=== PATIENT | female | born 1975 | race Caucasian/White ===

== ENCOUNTER 2020-07-31 15:11 | Outpatient (REF) | payer BC, SELFPAY ==
--- NOTE | 2020-07-31 15:15 | MM_ITS ---
EXAMINATION: MM SCREENING DIGITAL BREAST TOMOSYNTHESIS, BILATERAL CLINICAL INFORMATION: Screening. Asymptomatic. The lifetime risk of breast cancer based on the Tyrer-Cuzick Model is 15%. COMPARISON: Mammography: 12/29/2018, 11/23/2017, 11/10/2016 TECHNIQUE: Digital breast tomosynthesis is performed in both the craniocaudal and mediolateral oblique views along with computer-aided detection (CAD). Synthesized 2D images are generated from the tomosynthesis. FINDINGS: There are scattered areas of fibroglandular density (ACR BI-RADS breast composition Category b). There are no significant masses, abnormal calcifications, or other abnormalities. The axilla and skin contours are unremarkable. No significant changes from prior exams. MM/MM tomosynthesis screening BI IMPRESSION: No mammographic evidence of malignancy. ASSESSMENT: BI-RADS 1: Negative RECOMMENDATION: Routine annual mammography screening. This patient's information was entered into a reminder system with a target due date for their next mammogram.
== END 2020-07-31 15:12 | disposition home or self-care (01) ==
LOC: HO.MAMMO 15:11
PROVIDERS: PCP Internal Medicine; Visit Provider Internal Medicine
DX: Z12.31 Encounter for screening mammogram for malignant neoplasm of breast (principal)
CPT/HCPCS: 77063; 77067

== ENCOUNTER → 2020-11-27 10:57 | Outpatient (BNVA) | payer BC, SELFPAY | PROVIDERS: Visit Provider Advanced Practice Midwife ==

== ENCOUNTER 2021-08-11 11:37 | Outpatient (REF) | payer BC, SELFPAY ==
--- NOTE | ~2021-08-11 | MM_ITS ---
EXAMINATION: MM SCREENING DIGITAL BREAST TOMOSYNTHESIS, BILATERAL CLINICAL INFORMATION: Screening. Asymptomatic. The lifetime risk of breast cancer based on the Tyrer-Cuzick Model is 17%. COMPARISON: Mammography: 07/31/2020, 12/29/2018, 11/23/2017 TECHNIQUE: Digital breast tomosynthesis is performed in both the craniocaudal and mediolateral oblique views along with computer-aided detection (CAD). Synthesized 2D images are generated from the tomosynthesis. Additional left MLO view is provided. FINDINGS: There are scattered areas of fibroglandular density (ACR BI-RADS breast composition Category b). There are no significant masses, abnormal calcifications, or other abnormalities. MM/MM tomosynthesis screening BI IMPRESSION: No mammographic evidence of malignancy. ASSESSMENT: BI-RADS 1: Negative RECOMMENDATION: Routine annual mammography screening. This patient's information was entered into a reminder system with a target due date for their next mammogram.
== END 2021-08-11 11:38 | disposition home or self-care (01) ==
LOC: HO.MAMMO 11:37
PROVIDERS: Visit Provider Internal Medicine
DX: Z12.31 Encounter for screening mammogram for malignant neoplasm of breast (principal)
CPT/HCPCS: 77063; 77067

== ENCOUNTER → 2021-12-18 11:01 | Outpatient (BNVA) | payer BC, SELFPAY | PROVIDERS: PCP Internal Medicine; Visit Provider Advanced Practice Midwife | DX: Z13.89 Encounter for screening for other disorder (principal) ==

== ENCOUNTER 2022-08-19 11:44 | Outpatient (REF) | payer BC, SELFPAY ==
--- NOTE | ~2022-08-19 | MM_ITS ---
EXAMINATION: MM SCREENING DIGITAL BREAST TOMOSYNTHESIS, BILATERAL CLINICAL INFORMATION: Screening. Asymptomatic. The lifetime risk of breast cancer based on the Tyrer-Cuzick Model is 14%. COMPARISON: Mammography: 08/11/2021, 07/31/2020, 12/29/2018 TECHNIQUE: Digital breast tomosynthesis is performed in both the craniocaudal and mediolateral oblique views along with computer-aided detection (CAD). Synthesized 2D images are generated from the tomosynthesis. FINDINGS: There are scattered areas of fibroglandular density (ACR BI-RADS breast composition Category b). There are no significant masses, abnormal calcifications, or other abnormalities. Parenchymal pattern is similar to prior studies. There is no developing density or architectural abnormality. The axilla and skin contours are unremarkable. No significant changes. MM/MM tomosynthesis screening BI IMPRESSION: No mammographic evidence of malignancy. ASSESSMENT: BI-RADS 1: Negative RECOMMENDATION: Routine annual mammography screening. This patient's information was entered into a reminder system with a target due date for their next mammogram.
== END 2022-08-19 11:45 | disposition home or self-care (01) ==
LOC: HO.MAMMO 11:44
PROVIDERS: PCP Internal Medicine; Visit Provider Internal Medicine
DX: Z12.31 Encounter for screening mammogram for malignant neoplasm of breast (principal)
CPT/HCPCS: 77063; 77067

== ENCOUNTER 2023-02-17 09:03 | Outpatient (AMB) | payer BC, SELFPAY ==
--- NOTE | 2023-02-17 09:04 | A.OFFVIS_ITS ---
Intake Vital Signs 02/17/23 09:09 Height 5 ft 10 in Weight 163 lb BMI 23.4 BP 104/66 Intake Visit Reasons: Annual Allergies No Known Allergies Allergy (Mild, Verified 02/17/23 09:10) NOT APPLICABLE Medication List - Last Reconciled 02/17/23 by Tianna Brewer CNM escitalopram oxalate (Lexapro) 10 mg PO DAILY fluticasone propionate 50 mcg/actuation (Flonase Allergy Relief) 1 spray intranasal DAILY multivitamin (Daily Multi-Vitamin tablet) 1 tab PO DAILY sumatriptan succinate (Imitrex) 100 mg PO Q2-4H PRN Is last menstrual period known: Yes Last menstrual period: 01/13/23 (cycles starting to change) HPI Annual HPI Details Patient is here for her obstetrician and gynaecologist annual exam and Pap smear. Visits from past reviewed. She has been healthy since the last time she was seen in 2020 she has no history of abnormal Paps she has 0 worries about STIs and declines any testing she typically has use condoms for control but occasionally she does not she is monogamous and has no worries about STIs and would rather avoid a unintended at this stage. She eats very well she does yoga for exercise and hikes when it is not so hot. She has been noticing some irregularity with her menses she has skipped some cycles for as much as 8-9 months this past year and then they started back up again. Her last 1 was the end of December about a month ago. She has had no further gastrointestinal problems since several years ago when she was hospitalized with a possible ruptured appendix and infection She did have an extended period of upper respiratory infections this year with a sinus infection so prolonged periods of coughing in upper respiratory issues and during that time she started to have some urinary incontinence coughing/stress. It has mostly resolved itself she in general tends to drink a lot of water and she works from home so she does void when she needs to void and she re doubled her efforts with Kegel exercises and it has improved. Discussed options for referrals at some length in terms of exploring Urology consultations if she chose and she could discuss that with her primary or I would be happy to place a physical therapy referral for her as well but she wanted to know what the options were but was not interested in exploring them at this point since things have gotten better with her own efforts. PFSH Medical History Migraines Yeast infection Family History Mother HTN (hypertension) Paternal Aunt Breast cancer Maternal Aunt Cervical cancer, FIGO stage IIIB Father Esophageal cancer Social History Gender identity: Female Female Reproductive History Menstrual Age of Menarche: 11 Date of last menstrual period: 01/13/23 (cycles starting to change) Total pregnancies: 4 Number of Living Children: 3 Ab spontaneous: 1 Date of last pap smear: 07/07/18 (wnl) Physical Exam Vital Signs: Last Vital Signs BP 104/66 02/17/23 09:09 BMI result Body Mass Index 23.4 Const General: healthy appearing, comfortable, no acute distress, well developed and alert Nutritional Appearance: average body habitus Orientation/consciousness: patient oriented x3 Limitations: no limitations HEENT Head: Yes normocephalic Neck Neck: Yes normal visual inspection Chest Chest palpation & inspection: normal inspection of the chest Breast/axilla inspection: normal inspection of the breasts and normal inspection of the axillae Breast/axilla palpation: normal palpation of the breasts and normal palpation of the axillae Resp Effort & Inspection: normal respiratory effort GI Inspection: Yes normal to inspection, No Abdominal wall edema and No distended Palpation (GI): Soft to palpation and nontender Other: External exam completely within normal limits vagina pink and moist cervix multiparous moist small amount clear and white discharge no malodor cervix mobile nontender uterus midposition nontender adnexa nontender not enlarged excellent tone with sustained Kegel. General: Yes bladder normal to palpation External Female Exam: normal external appearance and normal appearance of the urethra Speculum Exam - Vagina: normal appearance of the vagina, normal palpation and normal vaginal discharge Speculum Exam - Cervix: normal appearance of the cervix, normal palpation and nontender Bimanual exam- vagina & uterus: normal bimanual exam, normal palpation, uterine size normal, bladder normal to palpation, consistency normal, normal palpation, uterine mobility normal, uterine shape normal, No Cervical tenderness present, non-tender and no cervical motion tenderness Bimanual Exam- Adnexa, other: normal adnexae, no masses, normal and No adnexal tenderness Neuro General: patient oriented x3 Assessment & Plan Assessment & Plan (1) Cervical cancer screening: Comment: hx neg paps and hpv, last neg jun 2018, next pap 07/16. Code(s): Z12.4 - Encounter for screening for malignant neoplasm of cervix (2) Well woman exam with routine gynecological exam: Code(s): Z01.419 - Encounter for gynecological examination (general) (routine) without abnormal findings (3) Perimenopause: Code(s): N95.1 - Menopausal and female climacteric states Plan Patient is here for her obstetrician and gynaecologist annual exam and Pap smear. Visits from past reviewed. She has been healthy since the last time she was seen in 2020 she has no history of abnormal Paps she has 0 worries about STIs and declines any testing she typically has use condoms for control but occasionally she does not she is monogamous and has no worries about STIs and would rather avoid a unintended at this stage. She eats very well she does yoga for exercise and hikes when it is not so hot. She has been noticing some irregularity with her menses she has skipped some cycles for as much as 8-9 months this past year and then they started back up again. Her last 1 was the end of December about a month ago. She has had no further gastrointestinal problems since several years ago when she was hospitalized with a possible ruptured appendix and infection She did have an extended period of upper respiratory infections this year with a sinus infection so prolonged periods of coughing in upper respiratory issues and during that time she started to have some urinary incontinence coughing/stress. It has mostly resolved itself she in general tends to drink a lot of water and she works from home so she does void when she needs to void and she re doubled her efforts with Kegel exercises and it has improved. Discussed options for referrals at some length in terms of exploring Urology consultations if she chose and she could discuss that with her primary or I would be happy to place a physical therapy referral for her as well but she wanted to know what the options were but was not interested in exploring them at this point since things have gotten better with her own efforts. Pap smear was done she declined cultures. She is up-to-date on her mammograms having just had 1 in the spring. She had a colonoscopy after the hospitalization and is up-to-date with that -----Discussed in this visit the following: healthy balanced diet, regular and consistent exercise, getting recommended health screens, doing the best she can for her particular health concerns, kegel exercises, pap smear screening and followup recommendations, mammography screening and SBE, normal changes in cycles in her life stage--- . I also reviewed what to expect in terms of minerva menopausal changes with thinning of skin and vaginal dryness and the importance of weight-bearing exercise and good nutrition which she has. Orders: Orders Pap Smear Today Z01.419 - Encounter for gynecological examination (general) (routine) without abnormal findings Coding Level of Care Code Est Pt Prev Care 40-64y(57092) Diagnoses Cervical cancer screening Z12.4 Well woman exam with routine gynecological exam Z01.419 Perimenopause N95.1
[2023-02-17 09:09] VITALS: BP 104/66; BMI 23.4
== END 2023-02-17 09:51 | disposition home or self-care (01) ==
LOC: HO.HWS 09:03
PROVIDERS: PCP Internal Medicine; Visit Provider Advanced Practice Midwife
DX: Z01.419 Encounter for gynecological examination (general) (routine) without abnormal findings (principal); N95.1 Menopausal and female climacteric states
CPT/HCPCS: 99396

== ENCOUNTER 2023-02-17 09:03 | Outpatient (REF) | payer BC, SELFPAY ==
[2023-02-24 22:18] LABS: HPV mRNA E6/E7 rflx Not Detected (Not Detected)
== END 2023-02-17 09:04 | disposition home or self-care (01) ==
LOC: HO.LNP 09:03
PROVIDERS: PCP Internal Medicine; Visit Provider Advanced Practice Midwife
DX: Z01.419 Encounter for gynecological examination (general) (routine) without abnormal findings (principal); Z11.51 Encounter for screening for human papillomavirus (HPV); N95.1 Menopausal and female climacteric states
CPT/HCPCS: 87624; 88142

== ENCOUNTER 2023-02-17 09:34 | Outpatient (REF) | payer BC, SELFPAY ==
[2023-02-17 10:09] LABS: MANUAL DIFF FLAG NO
[2023-02-17 11:00] LABS: Basophils Absolute Auto 0.1 X10*3/uL (0.0-0.2); Basophils Percent Auto 0.8 % (0-2); Eosinophils Absolute Auto 0.1 X10*3/uL (0.0-0.4); Eosinophils Percent Auto 2.1 % (0-4); Hematocrit 40.2 % (37.0-47.0); Hemoglobin 13.2 g/dl (12.0-16.0); Imm Gran Abs Auto 0.01 X10*3/uL (0.00-0.03); Imm Gran Pct Auto 0.2 % (0.0-0.4); Lymphocytes Percent Auto 30.5 % (20-40); Mean Corpuscular HGB Conc 32.8 g/dl (31.0-35.0); Mean Corpuscular Hemoglobin 28.1 pg (27.0-33.0); Mean Corpuscular Volume 85.5 fL (80.0-98.0); Mean Platelet Volume 10.8 fL (9.4-12.3); Monocytes Absolute Auto 0.5 X10*3/uL (0.1-1.2); Neutrophils Absolute Auto 3.9 x10*3/uL (2.0-8.3); Neutrophils Percent Auto 58.4 % (45-73); Platelet Count 220 X10*3/uL (160-400); Red Cell Distribution Width 12.8 % (11.0-16.0); White Blood Count 6.7 X10*3/uL (4.8-10.8)
[2023-02-17 11:37] LABS: Alanine Aminotransferase 14 U/L (0-31); Albumin Level 4.3 g/dL (3.5-5.0); Alkaline Phosphatase 58 U/L (39-117); Anion Gap 14 (12-20); Aspartate Amino Transferase 15 U/L (5-31); Bilirubin Total 0.6 mg/dL (0.0-1.0); Blood Urea Nitrogen 9 mg/dL (9-16); Calcium 9.8 mg/dL (8.4-10.2); Carbon Dioxide 24 mmol/L (22-29); Chloride 103 mmol/L (96-108); Cholesterol 204 mg/dL; Estimated Glomerular Filt Rate > 60; Glucose Random 94 mg/dL (60-115); HDL Cholesterol 73 mg/dL; LDL Cholesterol Calculated 118 mg/dl; Potassium 4.2 mmol/L (3.3-5.1); Sodium 137 mmol/L (135-145); Total Protein 7.6 g/dL (6.5-8.0); Triglycerides 65 mg/dL
[2023-02-17 11:55] LABS: Thyroid Stimulating Hormone 0.92 uIU/mL (0.32-4.0)
== END 2023-02-17 09:35 | disposition home or self-care (01) ==
LOC: HO.LAB 09:34
PROVIDERS: PCP Internal Medicine; Visit Provider Internal Medicine
DX: G43.909 Migraine, unspecified, not intractable, without status migrainosus (principal); E78.00 Pure hypercholesterolemia, unspecified; F41.9 Anxiety disorder, unspecified
CPT/HCPCS: 36415; 80053; 80061; 84443; 85025

== ENCOUNTER 2023-06-13 12:55 | Outpatient (AMB) | payer BC, SELFPAY ==
[2023-06-13 13:08] VITALS: BP 120/80; PULSE 82; TEMP 36.7; O2SAT 97; BMI 24.4
--- NOTE | 2023-06-13 13:08 | MHC.OFFWIV ---
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) Intake Note: pt is here for c/o cough, congestion Patient Tobacco Use Status: Never used Tobacco Allergies No Known Allergies Allergy (Mild, Verified 06/13/23 13:53) NOT APPLICABLE Medication List - Last Reconciled 06/13/23 by Nino Roberts MD escitalopram oxalate (Lexapro) 10 mg PO DAILY fluticasone propionate 50 mcg/actuation (Flonase Allergy Relief) 1 spray intranasal DAILY multivitamin (Daily Multi-Vitamin tablet) 1 tab PO DAILY sumatriptan succinate (Imitrex) 100 mg PO Q2-4H PRN Do you need a note to return to daycare/school/sports/work: Yes HPI ADMISSION DISCHARGE RN/cough/congestion (lobby masked) HPI Details Patient presents for a sick visit. Reporting symptoms of sinus congestion, sore throat and difficulty swallowing. Low-grade fever. No family member is sick. No recent travel. Patient reports symptoms of malaise and fatigue. [facility] Medical History Migraines Yeast infection Family History Mother HTN (hypertension) Paternal Aunt Breast cancer Maternal Aunt Cervical cancer, FIGO stage IIIB Father Esophageal cancer Social History Patient Tobacco Use Status: Never used Tobacco Gender identity: Female Female Reproductive History Menstrual Age of Menarche: 11 Physical Exam Vital Signs: Last Vital Signs Temp 98.1 F 06/13/23 13:08 Pulse 82 06/13/23 13:08 BP 120/80 06/13/23 13:08 Pulse Ox 97 06/13/23 13:08 Oxygen Delivery Method Room Air 06/13/23 13:08 BMI result Body Mass Index 24.4 Const General: cooperative and healthy appearing Nutritional Appearance: well nourished Orientation/consciousness: patient oriented x3 Limitations: no limitations HEENT Head: Yes normal to inspection Eyes General: appearance normal, both eyes and all related structures Neck Neck: Yes normal visual inspection Chest Chest palpation & inspection: normal palpation of entire chest wall Resp Effort & Inspection: normal respiratory effort Neuro General: patient oriented x3 Assessment & Plan Assessment & Plan (1) Upper respiratory tract infection: Code(s): J06.9 - Acute upper respiratory infection, unspecified Plan Antibiotics ordered. Increase fluid intake. Tylenol for aches and pains. If symptoms worsen, follow-up here for a recheck. Coding Level of Care Code Est Pt Level 3 (04827) Diagnoses Upper respiratory tract infection J06.9
== END 2023-06-13 14:00 | disposition home or self-care (01) ==
PROVIDERS: PCP Internal Medicine; Visit Provider Internal Medicine
DX: J06.9 Acute upper respiratory infection, unspecified (principal)
CPT/HCPCS: 99213

== ENCOUNTER 2023-08-26 13:28 | Outpatient (REF) | payer BC, SELFPAY | END 2023-08-26 13:29 | disposition home or self-care (01) | LOC: HO.MAMMO 13:28 | PROVIDERS: PCP Internal Medicine; Visit Provider Internal Medicine | DX: Z12.31 Encounter for screening mammogram for malignant neoplasm of breast (principal) | CPT/HCPCS: 77063; 77067 ==

== ENCOUNTER → 2023-08-26 13:30 | Outpatient (BNV) | payer BC, SELFPAY | PROVIDERS: PCP Internal Medicine; Visit Provider Radiology Diagnostic Radiology | DX: Z12.31 Encounter for screening mammogram for malignant neoplasm of breast (principal) | CPT/HCPCS: 77063; 77067 ==

== ENCOUNTER 2024-08-14 13:23 | Outpatient (AMB) | payer BC, SELFPAY ==
--- NOTE | 2024-08-14 13:41 | MHC.OFFVIS ---
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 Cyber Security Specialist Required: No Cyber Security Specialist Services: Cyber Security Specialist Present Information Interpreted: clinical only Stonemason: Stonemason Present Allergies No Known Allergies Allergy (Mild, Verified 08/14/24 13:43) NOT APPLICABLE Medication List - Last Reconciled 08/14/24 by Tianna Brewer CNM escitalopram oxalate (Lexapro) 10 mg PO DAILY fluticasone propionate 50 mcg/actuation (Flonase Allergy Relief) 1 spray intranasal DAILY multivitamin (Daily Multi-Vitamin tablet) 1 tab PO DAILY sumatriptan succinate (Imitrex) 100 mg PO Q2-4H PRN Is last menstrual period known: No Post menopausal: Yes HPI HPI 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 Previous 1 before that was 6 months prior. 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 She has not been exercising as much as she would like in the winter but she does do yoga and stretch and pickleball she hikes more in the summer and spring and fall. Her only main concern is something she talked about in the past she has been noticing that she is having more of an issue with incontinence of urine. She needs to wear something that provides more protection then just a pad. She does Kegel's every day and is very committed to that. She thinks she is in decent shape otherwise. It is getting so that sometimes when she coughs or sneezes or laughs there will be leakage but sometimes it is happening regardless.. She has no worries about STIs in his not due for Pap. [facility] Medical History Yeast infection Migraines Family History Mother HTN (hypertension) Paternal Aunt Breast cancer Maternal Aunt Cervical cancer, FIGO stage IIIB Father Esophageal cancer Social History Patient Tobacco Use Status: Never used Tobacco Gender identity: Female Female Reproductive History Menstrual Age of Menarche: 11 Duration of menses: 3-5 days control method: none Total pregnancies: 4 Full term: 3 Date of last pap smear: 02/13/23 (negative,2018 WNL) History of abnormal pap smear: No Date of Mammogram: 08/26/23 (negative) Physical Exam Vital Signs: Last Vital Signs BP 120/80 08/14/24 13:43 BMI result Body Mass Index 23.4 Const General: healthy appearing, comfortable, no acute distress, well developed and alert Nutritional Appearance: average body habitus Orientation/consciousness: patient oriented x3 Limitations: no limitations HEENT Head: Yes normocephalic Neck Neck: Yes normal visual inspection Chest Chest palpation & inspection: normal inspection of the chest Breast/axilla inspection: normal inspection of the breasts and normal inspection of the axillae Breast/axilla palpation: normal palpation of the breasts and normal palpation of the axillae Resp Effort & Inspection: normal respiratory effort GI Inspection: Yes normal to inspection, No Abdominal wall edema and No distended Palpation (GI): Soft to palpation and nontender Other: Justine menopausal atrophic changes noted. Vagina pink cervix multiparous pink with fairly normal appearing discharge cervix long close thick mobile nontender uterus midposition mobile nontender bladder not full concurrent with patient's perception. Good tone with Kegel. Not due for Pap and patient had no concerned about STIs. General: Yes bladder normal to palpation External Female Exam: normal external appearance and normal appearance of the urethra Speculum Exam - Vagina: normal appearance of the vagina, normal palpation and normal vaginal discharge Speculum Exam - Cervix: normal appearance of the cervix, normal palpation and nontender Bimanual exam- vagina & uterus: normal bimanual exam, normal palpation, uterine size normal, bladder normal to palpation, consistency normal, normal palpation, uterine mobility normal, uterine shape normal, No Cervical tenderness present, non-tender and no cervical motion tenderness Bimanual Exam- Adnexa, other: normal adnexae, no masses, normal and No adnexal tenderness Neuro General: patient oriented x3 Results Reviewed Results Reviewed: Name: Ale Samuel Age/Sex: 48/F Attending: Tianna Brewer CNM : 1975 Submitted by: Tianna Brewer CNM Copies to: Inocencio Gagnon MD MR #: [id number] Status: DEP REF Collected: 02/17/23 Location: [facility] Received: 02/22/23 Interpretation General Category: Negative for intraepithelial lesion/malignancy. Adequacy: Endocervical component present. Interpretation: Inflammation with associated cellular changes. HPV mRNA E6/E7: Not Detected This assay detects E6/E7 viral messenger RNA (mRNA) from 14 high-risk HPV types (16, 18, 31, 33, 35, 39, 45, 51, 52, 56, 58, 59, 66, 68) HPV testing performed by [employer], [place], [place]. See reference laboratory portion of the EMR for entire report. Clinical Information LMP: 01/13/23 Previous PAP test: 07/07/18, WNL Material Received ThinPrep-Cervical Copies To Inocencio Gagnon MD [address] [place] [address]. [place] [address] Tianna Brewer [address] [place] [address] Electronically Signed By: Kenny Hathaway MD 03/03/23 9895 The Pap Test is a screening procedure with the inherent possibility of both false negative and false positive results. Results should be interpreted in the context of historic and current clinical findings. Reliability of the Pap Test is enhanced by performing the test on a regular repetitive basis. Patient: Ale Samuel [facility]: 48[id number] MR#: [id number] Page 1 of 1 Assessment & Plan Assessment & Plan (1) Well woman exam with routine gynecological exam: Code(s): Z01.419 - Encounter for gynecological examination (general) (routine) without abnormal findings Category: Medical (2) Cervical cancer screening: Comment: hx neg paps and hpv, last neg jun 2018, next pap 07/16.; 02/17/2023 Pap is negative with negative HPV. Code(s): Z12.4 - Encounter for screening for malignant neoplasm of cervix Category: Medical (3) Perimenopause: Code(s): N95.1 - Menopausal and female climacteric states Category: Medical (4) Stress incontinence, female: Code(s): N39.3 - Stress incontinence (female) (male) Category: Medical Plan -----Discussed in this visit the following: healthy balanced diet, regular and consistent exercise, getting recommended health screens, doing the best she can for her particular health concerns, kegel exercises, pap smear screening and followup recommendations, mammography screening and SBE, normal changes in cycles in her life stage--- . She will be having her mammogram next month all of her provider's now are through the [facility] [employer] [facility] system [place] so she does not need a referral actually to see a specialist because of her insurance so she would rather ask around and find a referral for the issue with incontinence I did discuss with her the there maybe arrange of recommendations from medication to Kegel's which she is already doing to physical therapy which may or may not be of added benefit as she is strong and can do a Kegel very well on demand. She is drinking lots of water and other liquids but she also does not hold her urine on necessarily. Discussed that other options may include surgery or medication or other kinds of therapy that are being advertised. Offered to place a urogynecology referral but she would rather check it out on her own will also check with her primary care provider 1 Year pt will seek urogynocology referral via her pcp/ [facility] general Coding Level of Care Code Est Pt Prev Care 40-64y(05175) Diagnoses Well woman exam with routine gynecological exam Z01.419 Cervical cancer screening Z12.4 Perimenopause N95.1 Stress incontinence, female N39.3
[2024-08-14 13:43] VITALS: BP 120/80; BMI 23.4
== END 2024-08-14 14:28 | disposition home or self-care (01) ==
PROVIDERS: PCP Internal Medicine; Visit Provider Advanced Practice Midwife
DX: Z01.419 Encounter for gynecological examination (general) (routine) without abnormal findings (principal); N95.1 Menopausal and female climacteric states; N39.3 Stress incontinence (female) (male)
CPT/HCPCS: 99396; 99459

== ENCOUNTER 2024-08-31 13:25 | Outpatient (REF) | payer BC, SELFPAY | END 2024-08-31 13:26 | disposition home or self-care (01) | LOC: HO.MAMMO 13:25 | PROVIDERS: PCP Internal Medicine; Visit Provider Internal Medicine | DX: Z12.31 Encounter for screening mammogram for malignant neoplasm of breast (principal) ==

== ENCOUNTER → 2024-08-31 13:30 | Outpatient (BNV) | payer BC, SELFPAY | PROVIDERS: PCP Internal Medicine; Visit Provider Internal Medicine | DX: Z12.31 Encounter for screening mammogram for malignant neoplasm of breast (principal) | CPT/HCPCS: 77063; 77067 ==